=== PATIENT | female | born 1985 | race Caucasian/White ===

== ENCOUNTER → 2017-01-02 | Outpatient (CLI) | payer MEDICARE ==
[~2017-01-02] MED LIST: AVELOX400 MG PO; BACTROBAN22 GM TOP; LOPRESSOR 25 MG25 MG PO; NORCO 5-325 TA1 EACH PO
== END ==
LOC: LAB 11:35
DX: N94.89 Other specified conditions associated with female genital organs and menstrual cycle (principal); R31.9 Hematuria, unspecified
CPT/HCPCS: 36415; 82565; 84520

== ENCOUNTER → 2017-01-03 | Outpatient (CLI) | payer MEDICARE | LOC: CT 15:00 | DX: N94.89 Other specified conditions associated with female genital organs and menstrual cycle (principal); R31.9 Hematuria, unspecified; N20.0 Calculus of kidney; K59.00 Constipation, unspecified | CPT/HCPCS: J7050; Q9962 ==